=== PATIENT | male | born 1995 | race Caucasian/White ===

== ENCOUNTER 2023-08-14 17:29 | Emergency (ER) | payer SELFPAY ==
[~2023-08-14] VITALS: Ht 162.6 cm; Wt 72.6 kg
[2023-08-14 17:45] VITALS: BP 156/91; PULSE 108; RESP 20; TEMP 99; O2SAT 98
[2023-08-14] MEDS ORDERED: KETOROLAC 60 MG/2 ML VIAL IM ONE (18:15)
[2023-08-14] MEDS ORDERED: IBUP-2213 PO (18:24)
[2023-08-14] MEDS ORDERED: CEPH-588 PO (18:24)
== END 2023-08-14 19:00 | disposition home or self-care (01) ==
LOC: EDBD 17:29 → MED 17:29
DX: L03.115 Cellulitis of right lower limb (principal); Z79.899 Other long term (current) drug therapy
CPT/HCPCS: 96372; 99283; J1885